=== PATIENT | male | born 1995 | race Caucasian/White ===

== ENCOUNTER 2017-02-21 17:44 | Emergency (ER) | payer OTHER ==
[~2017-02-21] VITALS: Ht 180.3 cm; Wt 87.1 kg
[2017-02-21 17:47] VITALS: BP 113/67
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
[2017-02-21 18:05] VITALS: BP 113/67
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
== END 2017-02-21 18:06 ==
LOC: MED 17:44
DX: Z02.89 Encounter for other administrative examinations (principal)
CPT/HCPCS: 99283